=== PATIENT | female | born 1955 | race Caucasian/White ===

== ENCOUNTER 2017-10-28 15:23 | Outpatient (CLI) | payer BC, OTHER | END 2017-10-28 15:24 | disposition home or self-care (01) | LOC: BICULT 15:23 | PROVIDERS: ATTEND Internal Medicine Geriatric Medicine | DX: M79.652 Pain in left thigh (principal) | CPT/HCPCS: 76999 ==

== ENCOUNTER 2018-10-27 09:50 | Outpatient (CLI) | payer BC | END 2018-10-27 09:51 | disposition home or self-care (01) | LOC: BICMAMMO 09:50 | PROVIDERS: ATTEND Internal Medicine Geriatric Medicine | DX: Z12.31 Encounter for screening mammogram for malignant neoplasm of breast (principal); Z80.3 Family history of malignant neoplasm of breast | CPT/HCPCS: 77063; 77067 ==

== ENCOUNTER 2019-07-16 15:24 | Outpatient (CLI) | payer BC ==
[2019-07-16 16:00] LABS: Estimated GFR-MDRD - POC Greater than 90
--- NOTE | 2019-07-17 11:16 | MRI ---
LEFT FOOT MRI WITH AND WITHOUT IV CONTRAST: Date: 07/16/19 HISTORY: Pain, painful cyst on top of foot. TECHNIQUE: Multiplanar, multisequence MRI examination of the foot is performed with and without IV contrast. FINDINGS: A marker is placed over the area of concern at the level of the second metatarsophalangeal joint tigist on. At this location, there is a small ganglion cyst associated with the extensor tendon. This cyst m easures approximately 0.3 x 1.3 x 1.3 cm in size. In addition, there is evidence for some fluid invol ving the extensor digitorum longus tendon sheath, evidence for tenosynovitis, as well as a small focu s of tendon sheath fluid near the insertion of the anterior tibialis tendon sheath. No evidence for a bnormal marrow signal. There are some generalized degenerative and osteoarthrosis changes, including the first metacarpophalangeal joint and associated sesamoids, with a bifid-appearing lateral sesamoid . No evidence for abnormal contrast enhancement. IMPRESSION: Small tendon sheath ganglion cyst involving the extensor tendon at the level of the second metatarsop halangeal joint. No evidence for associated solid enhancing mass. Evidence for tendon sheath fluid in volving the extensor digitorum longus tendon sheath, as well as a small focus at the level of the ant erior tibialis tendon insertion, evidence for tenosynovitis. Minimal generalized degenerative and ost eoarthrosis changes. POS: [facility]
== END 2019-07-16 15:25 | disposition home or self-care (01) ==
LOC: BICMRI 15:24
PROVIDERS: ATTEND Podiatrist
DX: M67.472 Ganglion, left ankle and foot (principal); M79.672 Pain in left foot; M19.072 Primary osteoarthritis, left ankle and foot; R93.7 Abnormal findings on diagnostic imaging of other parts of musculoskeletal system; M65.872 Other synovitis and tenosynovitis, left ankle and foot
CPT/HCPCS: 82565

== ENCOUNTER 2019-10-29 13:18 | Outpatient (CLI) | payer BC ==
--- NOTE | 2019-10-29 13:38 | MMO ---
Bilateral MAMMO Bilat Screen [facility]. CLINICAL HISTORY: Patient is 64 years old and is seen for screening. The patient has the following family history of breast cancer: sister, malignant (generic). The patient has no personal history of cancer. VIEWS: The views performed were: bilateral craniocaudal with tomosynthesis and bilateral mediolateral oblique with tomosynthesis. FILMS COMPARED: The present examination has been compared to prior imaging studies performed at [facility] on 01/29/2015, 02/23/2016, 04/18/2017 and 10/27/2018. This study has been interpreted with the assistance of computer-aided detection. MAMMOGRAM FINDINGS: There are scattered fibroglandular densities. There are no suspicious masses, suspicious calcifications, or new areas of architectural distortion. IMPRESSION: THERE IS NO MAMMOGRAPHIC EVIDENCE OF MALIGNANCY. A ROUTINE FOLLOW-UP MAMMOGRAM IN 1 YEAR IS RECOMMENDED. THE RESULTS OF THIS EXAM WERE SENT TO THE PATIENT. ACR BI-RADS Category 1 - Negative MAMMOGRAPHY NOTE: 1. A negative mammogram report should not delay a biopsy if a dominant of clinically suspicious mass is present. 2. Approximately 10% to 15% of breast cancers are not detected by mammography. 3. Adenosis and dense breasts may obscure an underlying neoplasm. Reported by: MARYBETH ZIMMERMAN MD Electonically Signed: [id number]
== END 2019-10-29 13:19 | disposition home or self-care (01) ==
LOC: BICMAMMO 13:18
PROVIDERS: ATTEND Family Medicine
DX: Z12.31 Encounter for screening mammogram for malignant neoplasm of breast (principal); Z80.3 Family history of malignant neoplasm of breast
CPT/HCPCS: 77063; 77067

== ENCOUNTER 2020-12-19 13:35 | Outpatient (CLI) | payer BC | END 2020-12-19 13:36 | disposition home or self-care (01) | LOC: BICMAMMO 13:35 | PROVIDERS: ATTEND Family Medicine | DX: Z12.31 Encounter for screening mammogram for malignant neoplasm of breast (principal); Z80.3 Family history of malignant neoplasm of breast | CPT/HCPCS: 77063; 77067 ==

== ENCOUNTER 2023-03-15 07:44 | Outpatient (CLI) | payer BC | END 2023-03-15 07:45 | disposition home or self-care (01) | LOC: BICMAMMO 07:44 | PROVIDERS: ATTEND Family Medicine | DX: Z12.31 Encounter for screening mammogram for malignant neoplasm of breast (principal); Z80.3 Family history of malignant neoplasm of breast | CPT/HCPCS: 77063; 77067 ==

== ENCOUNTER 2024-03-30 14:19 | Outpatient (CLI) | payer BC | END 2024-03-30 14:20 | disposition home or self-care (01) | LOC: BICMAMMO 14:19 | PROVIDERS: ATTEND Family Medicine | DX: Z12.31 Encounter for screening mammogram for malignant neoplasm of breast (principal); Z80.3 Family history of malignant neoplasm of breast | CPT/HCPCS: 77063; 77067 ==

== ENCOUNTER 2025-06-10 15:47 | Outpatient (CLI) | payer BC, MEDICARE | END 2025-06-10 15:48 | disposition home or self-care (01) | LOC: BICMAMMO 15:47 | PROVIDERS: ATTEND Family Medicine | DX: Z12.31 Encounter for screening mammogram for malignant neoplasm of breast (principal); Z80.3 Family history of malignant neoplasm of breast | CPT/HCPCS: 77063; 77067 ==